=== PATIENT | female | born 1990 | race African-American/Black ===

== ENCOUNTER 2018-11-11 19:54 | Emergency (ER) | payer MEDICARE, MEDICAID ==
[~2018-11-11] VITALS: Ht 162.6 cm; Wt 127.0 kg
[~2018-11-11 19:54] MED LIST: HYDR-2765 PO
[2018-11-11] MEDS ORDERED: IV NORMAL SALINE 1000ML BAG 1,000 ML IV ONE ×2 (20:15)
[2018-11-11 20:30] LABS: BASO # 0.1 x10^3/uL (0.0-0.2); BASO % 1 % (0-3); EOS # 0.1 x10^3/uL (0.0-0.7); EOS % 1 % (0-3); HEMATOCRIT 39.6 % (36.0-47.0); LYMPH # 1.4 x10^3/uL (1.0-4.8); LYMPH % 22 % (24-48); MEAN CORPUSCULAR HEMOGLOBIN 26 pg (25-35); MEAN CORPUSCULAR HGB CONC 33 g/dL (31-37); MEAN CORPUSCULAR VOLUME 78 fL (79-100); MONO # 0.3 x10^3/uL (0.0-1.1); MONO % 4 % (0-9); NEUT # 4.6 x10^3uL (1.8-7.7); NEUT % 71 % (31-73); PLATELET COUNT 230 x10^3/uL (140-400); RED BLOOD COUNT 5.07 x10^6/uL (3.50-5.40); RED CELL DISTRIBUTION WIDTH 14.2 % (11.5-14.5); WHITE BLOOD COUNT 6.5 x10^3/uL (4.0-11.0)
[2018-11-11 20:39] LABS: PROTHROMBIN TIME PATIENT 13.9 SEC (11.7-14.0)
[2018-11-11 20:45] LABS: CALCIUM 8.6 mg/dL (8.5-10.1); CREATININE 1.1 mg/dL (0.6-1.0); GFR 72.1; POTASSIUM 3.4 mmol/L (3.5-5.1)
[2018-11-11 20:56] LABS: D-DIMER 4.05 ug/mlFEU (0.00-0.50)
[2018-11-11 20:59] LABS: ALBUMIN 3.4 g/dL (3.4-5.0); ALBUMIN/GLOBULIN RATIO 0.7 (1.0-1.7); TOTAL BILIRUBIN 0.7 mg/dL (0.2-1.0); TOTAL PROTEIN 8.6 g/dL (6.4-8.2)
[2018-11-11] MEDS ORDERED: ACETAMINOPHEN 500 MG TABLET PO ONE (21:00)
[2018-11-11] MEDS ORDERED: HYDROmorphone 2 MG/ML VIAL IV ONE ×2 (21:00→22:00)
[2018-11-11] MEDS ORDERED: ADENOSINE 6 MG/2 ML VIAL. IV ONE (21:00)
--- NOTE | 2018-11-11 21:00 | RAD ---
Single view chest dated 11/11/2018: Comparison made to 04/17/2016. Clinical Indication: Fever. Findings: Single upright portable exam of the chest was performed. Study is somewhat limited due to low lung volumes. Heart size and mediastinal contours are within normal limits given technique. The lungs are clear without evidence of focal consolidation. Vascular interstitium is within normal limits. Impression:: Limited exam. No apparent acute abnormality. Electronically signed by: Kenneth Torrez MD (11/11/2018 8:57 PM) [facility]
--- NOTE | 2018-11-11 21:25 | PHYS DOC ---
Past Medical History Past Medical History: Asthma, Other Additional Past Medical Histor: LUPUS, RESTRICTIVE LUNG DISEASE Past Surgical History: Other Additional Past Surgical Histo: WISDOM TEETH, BROCHOSCOPY Alcohol Use: Rarely Drug Use: Marijuana Adult General Chief Complaint Chief Complaint: CHEST PAIN [facility] HPI Patient is a 28 year old female with lupus presents with chest and leg pain. She reports the onset of leg pain starting in her legs while driving from [place], [place] to [place]. The pain was located bilaterally and was most prominent on the back of her legs and described as burning. She later started experiencing chest pain 4 hours ago that has gradually worsened and this prompted her to seek treatment. Her pain is located under her left breast with radiation to the left side of her back. She describes the pain as stabbing and rates it a 9/10. Her pain is exacerbated with deep inspiration. Earlier this year she was treated for pleural effusion and started on colchicine for pleuritic and pericardial pain and she states the chest pain now feels similar to her previous episode, but notes the bilateral leg pain is new. She denies cough, MÁRQUEZ, and n/v and admits to dizziness induced by postural changes. Review of Systems Review of Systems Constitutional: Denies fever or chills Eyes: Denies change in visual acuity, redness, or eye pain HENT: Denies nasal congestion or sore throat Respiratory: Denies cough. Admits to pain on deep inspiration Cardiovascular: No additional information not addressed in HPI GI: Denies abdominal pain, nausea, vomiting, bloody stools or diarrhea : Denies dysuria or hematuria Musculoskeletal: admits to b/l LE pain on the back side of her legs. Denies back pain or joint pain Neurologic: Denies headache, focal weakness or sensory changes All other systems were reviewed and found to be within normal limits, except as documented in this note. Current Medications Current Medications Current Medications Medications (Trade) Dose Ordered Sig/Dorina Start Time Stop Time Status Last Admin Dose Admin Acetaminophen (Tylenol) 1,000 mg 1X ONCE 11/11/18 21:00 11/11/18 21:01 DC 11/11/18 20:33 1,000 MG Adenosine (Adenocard) 6 mg 1X ONCE 11/11/18 21:00 11/11/18 21:01 DC 11/11/18 20:30 6 MG Hydromorphone HCl (Dilaudid) 1 mg 1X ONCE 11/11/18 21:00 11/11/18 21:01 DC 11/11/18 20:32 1 MG Sodium Chloride 1,000 ml @ 1,000 mls/hr 1X ONCE 11/11/18 20:15 11/11/18 21:14 11/11/18 20:36 1,000 MLS/HR Allergies Allergies Allergies Coded Allergies Type Severity Reaction Last Updated Verified buprenorphine Allergy Intermediate hallucinations 04/17/16 Yes Physical Exam Physical Exam Constitutional: Well developed, well nourished, acute distress, non-toxic appearance. HENT: Normocephalic, atraumatic, bilateral external ears normal, oropharynx moist, no oral exudates, nose normal. Eyes: PERRLA, EOMI, conjunctiva normal, no discharge. Neck: Normal range of motion, no tenderness, supple, no stridor. Cardiovascular:Heart rate tachycardic, regular rhythm, no murmur Lungs & Thorax: Bilateral breath sounds clear to auscultation, with decreased inspiration appreciated in the lower lung saul b/l Skin: Warm, dry, no erythema, no rash. Back: No tenderness, no CVA tenderness. Extremities: No tenderness, no cyanosis, no clubbing, ROM intact, no edema. Neurologic: Alert and oriented X 3, normal motor function, normal sensory function, no focal deficits noted. [] Current Patient Data Vital Signs Vital Signs Date Time Temp Pulse Resp B/P (MAP) Pulse Ox O2 Delivery O2 Flow Rate FiO2 11/11/18 20:32 16 99 Room Air 11/11/18 20:10 100.6 170 123/64 (83) 100.6 Lab Values Laboratory Tests Test 11/11/18 20:15 White Blood Count 6.5 x10^3/uL (4.0-11.0) Red Blood Count 5.07 x10^6/uL (3.50-5.40) Hemoglobin 13.0 g/dL (12.0-15.5) Hematocrit 39.6 % (36.0-47.0) Mean Corpuscular Volume 78 fL (79-100) L Mean Corpuscular Hemoglobin 26 pg (25-35) Mean Corpuscular Hemoglobin Concent 33 g/dL (31-37) Red Cell Distribution Width 14.2 % (11.5-14.5) Platelet Count 230 x10^3/uL (140-400) Neutrophils (%) (Auto) 71 % (31-73) Lymphocytes (%) (Auto) 22 % (24-48) L Monocytes (%) (Auto) 4 % (0-9) Eosinophils (%) (Auto) 1 % (0-3) Basophils (%) (Auto) 1 % (0-3) Neutrophils # (Auto) 4.6 x10^3uL (1.8-7.7) Lymphocytes # (Auto) 1.4 x10^3/uL (1.0-4.8) Monocytes # (Auto) 0.3 x10^3/uL (0.0-1.1) Eosinophils # (Auto) 0.1 x10^3/uL (0.0-0.7) Basophils # (Auto) 0.1 x10^3/uL (0.0-0.2) Prothrombin Time 13.9 SEC (11.7-14.0) Prothrombin Time INR 1.1 (0.8-1.1) D-Dimer (Olinda) 4.05 ug/mlFEU (0.00-0.50) H Maternal Serum HCG Beta Subunit 1 mIU/mL (0-5) Sodium Level 137 mmol/L (136-145) Potassium Level 3.4 mmol/L (3.5-5.1) L Chloride Level 103 mmol/L (98-107) Carbon Dioxide Level 24 mmol/L (21-32) Anion Gap 10 (6-14) Blood Urea Nitrogen 8 mg/dL (7-20) Creatinine 1.1 mg/dL (0.6-1.0) H Estimated GFR (Cockcroft-Gault) 72.1 BUN/Creatinine Ratio 7 (6-20) Glucose Level 109 mg/dL (70-99) H Lactic Acid Level 2.9 mmol/L (0.4-2.0) H Calcium Level 8.6 mg/dL (8.5-10.1) Total Bilirubin 0.7 mg/dL (0.2-1.0) Aspartate Amino Transferase (AST) 21 U/L (15-37) Alanine Aminotransferase (ALT) 19 U/L (14-59) Alkaline Phosphatase 63 U/L (46-116) Troponin I Quantitative < 0.017 ng/mL (0.000-0.055) XD-Pzn-M-Type Natriuretic Peptide 16 pg/mL (0-124) Total Protein 8.6 g/dL (6.4-8.2) H Albumin 3.4 g/dL (3.4-5.0) Albumin/Globulin Ratio 0.7 (1.0-1.7) L Ethyl Alcohol Level < 10 mg/dL (0-10) Laboratory Tests 11/11/18 20:15 Laboratory Tests 11/11/18 20:15 EKG EKG [] Radiology/Procedures Radiology/Procedures [REASON: fever PROCEDURE: PORTABLE CHEST 1V Single view chest dated 11/11/2018: Comparison made to 04/17/2016. Clinical Indication: Fever. Findings: Single upright portable exam of the chest was performed. Study is somewhat limited due to low lung volumes. Heart size and mediastinal contours are within normal limits given technique. The lungs are clear without evidence of focal consolidation. Vascular interstitium is within normal limits. Impression:: Limited exam. No apparent acute abnormality. Electronically signed by: Kenneth Torrez MD (11/11/2018 8:57 PM) [employer] DICTATED and SIGNED BY: KENNETH TORREZ MD DATE: 11/11/182056 ] Course & Med Decision Making Course & Med Decision Making Pertinent Labs and Imaging studies reviewed. (See chart for details) [] Michael Disclaimer Michael Disclaimer This electronic medical record was generated, in whole or in part, using a voice recognition dictation system. Departure Departure Referrals: UNKNOWN PCP NAME (PCP) YOLANDA THORNTON MD Nov 11, 2018 21:25
[2018-11-11] MEDS ORDERED: CONTRAST GIVEN. MC PRN (21:30)
[2018-11-11] MEDS ORDERED: cefTRIAXone IV Push 1 GM VIAL. IVP ONE (21:30)
[2018-11-11] MEDS ORDERED: IOHEXOL 350 MG/ML 100 ML VIAL. IV ONE (22:00)
--- NOTE | 2018-11-11 22:41 | RAD ---
BILATERAL LOWER EXTREMITY ULTRASOUND WITH DOPPLER 11/11/2018 10:05 PM Clinical Information: Leg pain after long car trip. Comparison: None. Technique: Multiple grayscale, color Doppler, and spectral Doppler sonographic images of the lower extremity venous structures were obtained. Findings: The right common femoral, femoral, and popliteal veins exhibit normal compression, respiratory phasicity, and augmentation. No intraluminal thrombi are identified. Color Doppler flow is demonstrated in the right posterior tibial veins although evaluation is limited. The left common femoral, femoral, and popliteal veins exhibit normal compression, respiratory phasicity, and augmentation. No intraluminal thrombi are identified. Color Doppler flow is demonstrated in the left posterior tibial veins although evaluation is limited. Greater saphenous veins are patent. Impression: 1. No evidence of deep venous thrombosis. Electronically signed by: Mary Jensen MD (11/11/2018 10:38 PM) [facility]
--- NOTE | 2018-11-11 23:02 | RAD ---
RS Compliance Statement: One or more of the following individualized dose reduction techniques were utilized for this examination: 1. Automated exposure control 2. Adjustment of the mA and/or kV according to patient size 3. Use of iterative reconstruction technique CT angiography chest with contrast 11/11/2018 9:13 PM INDICATION: Left-sided chest pain, dizziness COMPARISON: None available TECHNIQUE: Axial CT images of the chest were obtained after the intravenous administration of nonionic contrast. Coronal and sagittal reformats are provided. Maximum intensity projection images of the thoracic vasculature are provided. FINDINGS: The thyroid gland is normal in appearance. Left axillary lymph node measures 12 mm by short axis. The heart size is within normal limits. No significant pericardial effusion. Thoracic aorta is normal in course and caliber. There is elevation of the left hemidiaphragm. There is adequate opacification of the pulmonary arterial system. There there are no filling defects within the pulmonary arterial system to suggest acute or chronic pulmonary embolus. There are no suspicious solid noncalcified pulmonary nodules. There is bandlike density in the superior segment right lower lobe which may represent subsegmental atelectasis versus developing infiltrate versus scarring.. There are no pleural effusions. No pulmonary vascular congestion or pneumothorax. Visualized portions of the upper abdomen are within normal limits. No suspicious osseous lesions are visualized. IMPRESSION: There is no evidence for acute or chronic pulmonary embolism. There is bandlike density in the right lower lobe which may represent subsegmental atelectasis versus infiltrate versus scarring. There is elevation the right hemidiaphragm. Electronically signed by: Mary Jensen MD (11/11/2018 10:59 PM) [facility]
[2018-11-11 23:03] LABS: BILIRUBIN,URINE SMALL (NEG); CLARITY,URINE CLEAR; COLOR,URINE YELLOW; NITRITE,URINE NEGATIVE (NEG); PH,URINE 6.5; PROTEIN,URINE 100 mg/dL (NEG-TRACE)
[2018-11-11 23:09] LABS: BARBITURATES NEG (NEG); BENZODIAZEPINES NEG (NEG); CANNABINOIDS POS (NEG); COCAINE NEG (NEG); METHADONE NEG (NEG); OPIATES POS (NEG); PHENCYCLIDINE NEG (NEG)
[2018-11-11 23:10] LABS: AMPHETAMINE/METHAMPHETAMINE NEG (NEG)
[2018-11-11 23:11] LABS: BACTERIA,URINE FEW /HPF (0-FEW); RBC,URINE 0 /HPF (0-2); SQUAMOUS EPITHELIAL CELL,UR MOD /LPF
[2018-11-11 23:27] VITALS: BP 114/67
[2018-11-12] MEDS ORDERED: KETOROLAC 15 MG/ML VIAL. IV ONE
[2018-11-12] MEDS ORDERED: traMADol 50 MG TABLET PO ONE
--- NOTE | 2018-11-12 09:03 | EKG ---
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
== END 2018-11-11 23:55 | disposition left against medical advice (07) ==
LOC: ER 19:54
DX: R07.89 Other chest pain (principal); M79.604 Pain in right leg; M79.605 Pain in left leg; J45.909 Unspecified asthma, uncomplicated; R42 Dizziness and giddiness; Z88.8 Allergy status to other drugs, medicaments and biological substances
CPT/HCPCS: 36415; 71045; 71275; 80053; 80307; 81001; 83605; 83880; 84484; 84702; 85025; 85379; 85610; 87040; 87077; 87205; 93005; 93970; 96361; 96374; 96375; 96376; 99285; G0480; J0153; J0696; J1170; J1885; J7030; Q9967

== ENCOUNTER 2020-10-11 12:41 | Emergency (ER) | payer BC, MEDICARE ==
[~2020-10-11] VITALS: Ht 162.6 cm; Wt 150.0 kg
[2020-10-11] MEDS ORDERED: NITROGLYCERIN SUBLINGUAL 0.4 MG BOTTLE OF 25. SL PRN (13:15)
[2020-10-11 13:20] LABS: BASO % 1 % (0-3); EOS % 1 % (0-3); HEMOGLOBIN 13.8 g/dL (12.0-15.5); LYMPH # 1.1 x10^3/uL (1.0-4.8); LYMPH % 35 % (24-48); MEAN CORPUSCULAR HEMOGLOBIN 26 pg (25-35); MEAN CORPUSCULAR HGB CONC 33 g/dL (31-37); MEAN CORPUSCULAR VOLUME 81 fL (79-100); MONO # 0.2 x10^3/uL (0.0-1.1); MONO % 8 % (0-9); NEUT # 1.7 x10^3/uL (1.8-7.7); NEUT % 56 % (31-73); PLATELET COUNT 219 x10^3/uL (140-400); RED BLOOD COUNT 5.22 x10^6/uL (3.50-5.40); RED CELL DISTRIBUTION WIDTH 14.3 % (11.5-14.5); WHITE BLOOD COUNT 3.1 x10^3/uL (4.0-11.0)
--- NOTE | 2020-10-11 13:23 | RAD ---
Single view chest dated 10/11/2020. Comparison made to 10/12/2018. Clinical data indication: Chest pain. FINDINGS: Single upright portable exam performed. Heart and mediastinal contours are stable. Elevation of right hemidiaphragm, unchanged. Lungs are clear. No consolidation or pleural effusion. No pneumothorax. IMPRESSION: No acute radiographic abnormality. Stable findings compared to 11/11/2018. Electronically signed by: Kenneth Torrez MD (10/11/2020 1:20 PM) [id number]
[2020-10-11] MEDS ORDERED: IV NORMAL SALINE 1000ML BAG 1,000 ML IV ONE (13:30)
[2020-10-11] MEDS ORDERED: ASPIRIN 325 MG TABLET PO ONE (13:30)
[2020-10-11] MEDS ORDERED: methylPREDNISolone SOD SUCC PF 125 MG/2 ML VIAL. IV ONE (13:30)
[2020-10-11 13:31] LABS: CALCIUM 8.9 mg/dL (8.5-10.1); GFR 79.3; POTASSIUM 3.1 mmol/L (3.5-5.1)
[2020-10-11] MEDS: fentaNYL PF VIAL 100 MCG/2 ML VIAL IV PRN ×2 (13:32→14:16)
[2020-10-11 13:39] LABS: ALBUMIN 3.6 g/dL (3.4-5.0); ALBUMIN/GLOBULIN RATIO 0.9 (1.0-1.7); MAGNESIUM 1.8 mg/dL (1.8-2.4); TOTAL PROTEIN 7.7 g/dL (6.4-8.2)
--- NOTE | 2020-10-11 15:12 | EKG ---
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
[2020-10-11] MEDS ORDERED: POTASSIUM CHLORIDE 20 MEQ TABLET.ER. PO ONE ×2 (15:15→16:00)
[2020-10-11 15:35] VITALS: BP 136/70
[2020-10-11] MEDS ORDERED: TRAM50TA PO (16:07)
--- NOTE | 2020-10-11 16:07 | PHYS DOC ---
Past Medical History Past Medical History: Asthma, Other Additional Past Medical Histor: LUPUS, RESTRICTIVE LUNG DISEASE Past Surgical History: Other Additional Past Surgical Histo: WISDOM TEETH, BROCHOSCOPY Smoking Status: Never Smoker Alcohol Use: Rarely Drug Use: Marijuana General Adult EDM: Chief Complaint: CHEST WALL PAIN HPI: HPI: Patient is a 30 year old female with history of lupus who presents to the ED today complaining of 8 out of 10 pain throughout her joints as well as left- sided chest pain just below her breast, symptoms began yesterday, patient states symptoms are worse when she is taking a deep breath. Patient denies any fever. Denies any cough. Denies any nasal congestion. She states she recently had a long car ride from [place] to [place] a week ago. She states she took her tramadol and prednisone with no relief of her symptoms. Patient states this is her typical presentation of her lupus flare Review of Systems: Review of Systems: Constitutional: Denies fever or chills. [] Eyes: Denies change in visual acuity. [] HENT: Denies nasal congestion or sore throat. [] Respiratory: Denies cough or shortness of breath. [] Cardiovascular: Reports chest pain GI: Denies abdominal pain, nausea, vomiting, bloody stools or diarrhea. [] : Denies dysuria. [] Musculoskeletal: Reports all her joints painful denies back pain Integument: Denies rash. [] Neurologic: Denies headache, focal weakness or sensory changes. [] Psychiatric: Denies depression or anxiety. [] Heart Score: C/O Chest Pain: Yes HEART Score for Chest Pain: HEART Score for Chest Pain Response (Comments) Value History Slighlty/Non-Suspicious 0 ECG Normal 0 Age < 45 0 Risk Factors No Risk Factors 0 Troponin < Normal Limit 0 Total 0 Risk Factors: Risk Factors: DM, Current or recent (<one month) smoker, HTN, HLP, family history of CAD, obesity. Risk Scores: Score 0 - 3: 2.5% MACE over next 6 weeks - Discharge Home Score 4 - 6: 20.3% MACE over next 6 weeks - Admit for Clinical Observation Score 7 - 10: 72.7% MACE over next 6 weeks - Early Invasive Strategies Current Medications: Current Medications Medications (Trade) Dose Ordered Sig/Dorina Start Time Stop Time Status Last Admin Dose Admin Aspirin (Ryan Aspirin) 325 mg 1X ONCE 10/11/20 13:30 10/11/20 13:31 DC 10/11/20 13:32 325 MG Fentanyl Citrate (Fentanyl 2ml Vial) 50 mcg PRN Q15MIN PRN 10/11/20 13:15 10/12/20 13:14 10/11/20 14:16 50 MCG Methylprednisolone Sodium Succinate (SOLU-Medrol 125MG VIAL) 125 mg 1X ONCE 10/11/20 13:30 10/11/20 13:31 DC 10/11/20 13:32 125 MG Nitroglycerin (Nitrostat) 0.4 mg PRN Q5MIN PRN 10/11/20 13:15 10/12/20 13:14 Potassium Chloride (Klor-Con) 40 meq 1X ONCE 10/11/20 16:00 10/11/20 16:01 10/11/20 15:54 40 MEQ Sodium Chloride 1,000 ml @ 1,000 mls/hr 1X ONCE 10/11/20 13:30 10/11/20 14:29 DC 10/11/20 13:32 1,000 MLS/HR Allergies: Allergies: Allergies Coded Allergies Type Severity Reaction Last Updated Verified buprenorphine Allergy Intermediate hallucinations 04/17/16 Yes Physical Exam: PE: Constitutional: Obese patient, no acute distress, non-toxic appearance. [] HENT: Normocephalic, atraumatic, bilateral external ears normal, oropharynx moist, no oral exudates, nose normal. [] Eyes: PERRLA, EOMI, conjunctiva normal, no discharge. [] Neck: Normal range of motion, no tenderness, supple, no stridor. [] Cardiovascular: Patient is tachycardic Lungs & Thorax: Bilateral breath sounds clear to auscultation [] Abdomen: Bowel sounds normal, soft, no tenderness, no masses, no pulsatile m asses. [] Skin: Warm, dry skin to the forehead, no erythema, no rash. [] Back: No tenderness, no CVA tenderness. [] Extremities: No tenderness, no cyanosis, no clubbing, ROM intact, no edema. [] Neurologic: Alert and oriented X 3, normal motor function, normal sensory function, no focal deficits noted. [] Psychologic: Affect normal, judgement normal, mood normal. [] Current Patient Data: Labs: Laboratory Tests Test 10/11/20 13:10 White Blood Count 3.1 x10^3/uL (4.0-11.0) L Red Blood Count 5.22 x10^6/uL (3.50-5.40) Hemoglobin 13.8 g/dL (12.0-15.5) Hematocrit 42.0 % (36.0-47.0) Mean Corpuscular Volume 81 fL (79-100) Mean Corpuscular Hemoglobin 26 pg (25-35) Mean Corpuscular Hemoglobin Concent 33 g/dL (31-37) Red Cell Distribution Width 14.3 % (11.5-14.5) Platelet Count 219 x10^3/uL (140-400) Neutrophils (%) (Auto) 56 % (31-73) Lymphocytes (%) (Auto) 35 % (24-48) Monocytes (%) (Auto) 8 % (0-9) Eosinophils (%) (Auto) 1 % (0-3) Basophils (%) (Auto) 1 % (0-3) Neutrophils # (Auto) 1.7 x10^3/uL (1.8-7.7) L Lymphocytes # (Auto) 1.1 x10^3/uL (1.0-4.8) Monocytes # (Auto) 0.2 x10^3/uL (0.0-1.1) Eosinophils # (Auto) 0.0 x10^3/uL (0.0-0.7) Basophils # (Auto) 0.0 x10^3/uL (0.0-0.2) D-Dimer (Olinda) 2.79 ug/mlFEU (0.00-0.50) H Sodium Level 141 mmol/L (136-145) Potassium Level 3.1 mmol/L (3.5-5.1) L Chloride Level 104 mmol/L (98-107) Carbon Dioxide Level 24 mmol/L (21-32) Anion Gap 13 (6-14) Blood Urea Nitrogen 6 mg/dL (7-20) L Creatinine 1.0 mg/dL (0.6-1.0) Estimated GFR (Cockcroft-Gault) 79.3 BUN/Creatinine Ratio 6 (6-20) Glucose Level 117 mg/dL (70-99) H Calcium Level 8.9 mg/dL (8.5-10.1) Magnesium Level 1.8 mg/dL (1.8-2.4) Total Bilirubin 1.0 mg/dL (0.2-1.0) Aspartate Amino Transferase (AST) 22 U/L (15-37) Alanine Aminotransferase (ALT) 28 U/L (14-59) Alkaline Phosphatase 76 U/L (46-116) Troponin I Quantitative < 0.017 ng/mL (0.000-0.055) ZE-[id number]-P-Type Natriuretic Peptide 18 pg/mL (0-124) Total Protein 7.7 g/dL (6.4-8.2) Albumin 3.6 g/dL (3.4-5.0) Albumin/Globulin Ratio 0.9 (1.0-1.7) L Thyroid Stimulating Hormone (TSH) 0.680 uIU/mL (0.358-3.74) Laboratory Tests 10/11/20 13:10 Laboratory Tests 10/11/20 13:10 Vital Signs: Vital Signs Date Time Temp Pulse Resp B/P (MAP) Pulse Ox O2 Delivery O2 Flow Rate FiO2 10/11/20 14:35 91 16 135/63 (87) 99 Room Air 10/11/20 13:00 98.7 98.7 EKG: EK EKG interpreted by Dr. Wilson sinus tachycardia HR130 T inversions on lead I lead III and aVF, no STEMI, Radiology/Procedures: Radiology/Procedures: []PROCEDURE: PORTABLE CHEST 1V Single view chest dated 10/11/2020. Comparison made to 10/12/2018. Clinical data indication: Chest pain. FINDINGS: Single upright portable exam performed. Heart and mediastinal contours are stable. Elevation of right hemidiaphragm, unchanged. Lungs are clear. No consolidation or pleural effusion. No pneumothorax. IMPRESSION: No acute radiographic abnormality. Stable findings compared to 11/11/2018. Electronically signed by: Kenneth Torrez MD (10/11/2020 1:20 PM) [id number] DICTATED and SIGNED BY: KENNETH TORREZ MD DATE: 10/11/20 [id number] 0 Course & Med Decision Making: Course & Med Decision Making Pertinent Labs and Imaging studies reviewed. (See chart for details) This is a 30-year-old female patient presenting to the ED today complaining of chest pain and all her joints hurting, patient states this is her typical presentation of her lupus flareup. vitals on arrival to the ED temperature 98.0, heart rate 130, blood pressure 162/99, O2 sats 100% on room air, respiration 24. CBC with a WBC of 3.1, potassium 3.0, patient was given oral potassium replacement. D-dimer 2.79, CTA chest was ordered, informed patient, she refused it stating her D-dimer is always elevated due to her lupus and frequent car rides. Gave patient the risk. Patient continued to refuse this stating she does not need CTA chest. She states she has a PCP in [place] and is currently out of tramadol. Short course was given. Encouraged to contact her PCP for more medications. Michael Disclaimer: Michael Disclaimer: This electronic medical record was generated, in whole or in part, using a voice recognition dictation system. Departure Departure Impression: Primary Impression: Lupus Additional Impression: Chest pain Qualified Codes: R07.9 - Chest pain, unspecified Disposition: HOME / SELF CARE / HOMELESS Condition: STABLE Referrals: UNKNOWN PCP NAME (PCP) follow up in one week with your doctor Patient Instructions: Lupus Additional Instructions: Please contact your primary care doctor in [place] and set up a follow-up appointment. Continue taking prednisone Scripts Tramadol Hcl (TRAMADOL HCL) 50 Mg Tablet 50 MG PO Q6HRS PRN for PAIN, #21 TAB Prov: MANUEL MURRAY APRN 10/11/20 MANUEL MURRAY APRN Oct 11, 2020 16:07
== END 2020-10-11 16:25 | disposition home or self-care (01) ==
LOC: ER 12:41
DX: R07.89 Other chest pain (principal); M32.9 Systemic lupus erythematosus, unspecified; J45.909 Unspecified asthma, uncomplicated; Z88.8 Allergy status to other drugs, medicaments and biological substances
CPT/HCPCS: 36415; 71045; 80053; 83735; 83880; 84443; 84484; 85025; 85379; 93005; 96361; 96374; 96375; 96376; 99285; J2930; J3010; J7030